=== PATIENT | male | born 1960 | race Caucasian/White ===

== ENCOUNTER 2016-11-12 12:51 | Inpatient (IN) | payer OTHER ==
[~2016-11-12] VITALS: Ht 182.9 cm; Wt 131.5 kg
[~2016-11-12 12:51] MED LIST: PROM6.257 PO; ZITH250T PO; ZOLO100T PO
[2016-11-22] MEDS ORDERED: ZOLO100T PO ×2 (09:43)
[2016-11-22] MEDS ORDERED: TEST1GEL5 TOPICAL ×2 (09:43)
[2016-12-03] MEDS ORDERED: CHLORHEXIDINE GLUCONATE 2 % 1 PACK (2 CLOTHS) TOPICAL PRN (05:45)
[2016-12-03] MEDS ORDERED: ceFAZolin 2 GM PREMIX 50 ML IV SCH (05:45)
[2016-12-03] MEDS ORDERED: LACTATED RINGER'S 1000 ML IV PRN (05:45)
[2016-12-03] MEDS ORDERED: POVIDONE IODINE 5% (ANTISEPSIS KIT) 4 APPLICATIONS EACH NARE PRN (05:45)
[2016-12-03] MEDS ORDERED: CHLORHEXIDINE GLUCONATE 4% SOLN 120 ML BTL TOPICAL SCH (05:45)
[2016-12-03] MEDS ORDERED: METOPROLOL TARTRATE 25 MG TAB PO PRN (05:45)
[2016-12-03] MEDS ORDERED: SODIUM CHLORID 0.9% 500 ML IV PRN (05:45)
[2016-12-03] MEDS ORDERED: INSULIN HUMAN REGULAR 1,000 UNITS/10 ML VIAL SQ PRN (05:45)
[2016-12-03 06:03] VITALS: BP 145/85; PULSE 47; RESP 20; TEMP 98.1; O2SAT 97
[2016-12-03] MEDS ORDERED: GENTAMICIN SULFATE 80 MG/2 ML VIAL ONE (06:10)
[2016-12-03] MEDS ORDERED: FAMOTIDINE 20 MG/2 ML VIAL ONE (07:56)
[2016-12-03] MEDS ORDERED: DEXAMETHASONE SOD PHOS 4 MG/ML VIAL ONE (07:56)
[2016-12-03] MEDS ORDERED: MIDAZOLAM HCL 2 MG/2 ML VIAL ONE ×2 (07:56→12:22)
[2016-12-03] MEDS ORDERED: EXPAREL PERI-ARTICULAR INJECTION (TOTAL VOL. 60 ML) P-ARTICULR SCH ×2 (08:30)
[2016-12-03] MEDS ORDERED: SODIUM CHLORIDE 0.9% IV SCH ×3 (08:30→11:30)
[2016-12-03] MEDS ORDERED: TRANEXAMIC ACID IV SCH ×3 (08:30→11:30)
[2016-12-03] MEDS ORDERED: BUPIVACAINE LIPOSO PF 1.3% INJ 20 ML in SODIUM CHLORIDE 0.9% INJ 80 ML P-ARTICULR SCH (08:30)
[2016-12-03] MEDS ORDERED: ASPI-99 PO (08:37)
--- NOTE | 2016-12-03 08:41 | HHI.FF ---
Face to Face Verification Diagnosis: (1) Status post total left knee replacement Physical Therapy Gait training Knee: Total knee, Protocol: Left, Gait training, Full weight bearing Left LE Weight Bearing: WB as tolerated Left LE Range of Motion: Active ROM (AROM, AAROM, PROM, PRE. ROM goal is 0 to) Nursing Nursing: Dressing changes Dressing Changes: Daily dressing change, Coverderm/Primapore Additional Instructions Remove steristrips on postop day 14. I have seen patient Cholo Avalos Jr Yasmani on 12/03/16. My clinical findings support the need for the requested home health care services because: Ltd mobility - disease progression Limited ability to care for self High risk of falls I certify that my clinical findings support that this patient is homebound because: Post-op weakness Unsteady gait/balance Unsafe to leave home unassisted Lupillo Callahan MD (Charles) Dec 03, 2016 08:41
[2016-12-03] MEDS ORDERED: Post-op Orders (for Pharmacy) MISC XX ONE (08:45)
[2016-12-03] MEDS ORDERED: SODIUM CHLORIDE 0.9% FLUSH 5 ML FLUSH IVF PRN (08:45)
[2016-12-03] MEDS ORDERED: ACETAMINOPHEN/HYDROcodone 325 MG/7.5 MG TAB PO PRN ×2 (08:45)
[2016-12-03] MEDS ORDERED: ONDANSETRON HCL 4 MG/2 ML VIAL IVP PRN (08:45)
[2016-12-03] MEDS ORDERED: ZOLPIDEM TARTRATE 5 MG TAB PO PRN (08:45)
[2016-12-03] MEDS ORDERED: MORPHINE SULFATE 4 MG/ML INJ IV PUSH PRN (08:45)
[2016-12-03] MEDS ORDERED: MAGNESIUM HYDROXIDE SUSP 30 ML CUP PO PRN (08:45)
[2016-12-03] MEDS: SERTRALINE HCL 100 MG TAB PO SCH (09:00)
[2016-12-03] MEDS: SODIUM CHLORIDE 0.9% FLUSH 5 ML FLUSH IVF SCH ×2 (09:00→20:09)
[2016-12-03] MEDS ORDERED: BUPIVACAINE HCL PF 0.5% 30 ML VIAL NERV BLOCK ONE (09:14)
[2016-12-03] MEDS ORDERED: LACTATED RINGER'S 1000 ML INJ 1,000 ML IV ONE (12:00)
[2016-12-03] MEDS ORDERED: PROPOFOL 200 MG/20 ML AMP IV ONE (12:00)
[2016-12-03] MEDS ORDERED: fentaNYL CITRATE 250 MCG/5 ML AMP ONE (12:22)
[2016-12-03] MEDS: LACTATED RINGER'S 1000 ML INJ 1,000 ML IV SCH ×2 (12:45→20:09)
[2016-12-03] MEDS: KETOROLAC TROMETHAMINE 30 MG/ML (IVP) VIAL IVP SCH ×3 (12:50→20:09)
--- NOTE | 2016-12-03 13:11 | RADRPT ---
EXAM DATE/TIME: 12/03/2016 12:36 [place] COMPARISON: No previous studies available for comparison. INDICATIONS : Post-op left knee. MEDICAL HISTORY : None. SURGICAL HISTORY : None. ENCOUNTER: Initial ACUITY: 1 day PAIN SCORE: 0/10 LOCATION: Left Knee. FINDINGS: Total knee arthroplasty is in place. The femoral, tibial, and patellar components appear intact. Th ere are no signs of loosening or fracture. There is an osteochondroma coming off the medial femoral m etaphysis measures 3 cm with a base of 1.8 cm. CONCLUSION: Intact total knee arthroplasty for technique and osteochondroma coming off the dista l femur. William Simpson MD on December 03, 2016 at 13:09 Board Certified Radiologist. This report was verified electronically.
[2016-12-03] MEDS ORDERED: DO NOT ADM ANY ANTICOAGULANT DRUGS PRN (13:15)
--- NOTE | 2016-12-03 13:35 | PD.CONS ---
HPI Service [facility] Hospitalists Consult Requested By Jared Callahan M.D. Reason for Consult Medical Management Primary Care Physician Rashi Pereyra MD Diagnoses: (1) Primary osteoarthritis of left knee (2) Depression (3) Decreased testosterone level History of Present Illness Written by Dustin Freeman, acting as scribe for Dr. Edilia Brady on 12/03/16 at 13 :34. Mr. Gruber is 56 yo, with history of decreased testosterone level and depression. His surgical history includes tonsillectomy, "repair of my foot bones" (left foot), 3-4 meniscal repairs to his left and right knees, as well as right Anterior cruciate ligament repair. Mr. Gruber reported having undergone right ACL repair over 20 years ago. He stated his gait changed and "I'm over weight and that didn't help my knees." He stated he has been walking unassisted yet needs support when he is walking up and down steps, most notably for the past two years. He stated the pain became too great and he underwent surgery to replace his left knee. Mr. Gruber stated he has been working out several times a week for several months "in order to decrease the backside of this surgery." Dr. Callahan contacted the Hospitalist team in order to medically manage Mr. Gruber's medical issues. Review of Systems Musculoskeletal: COMPLAINS OF: Joint pain (Pt reported having left shoulder pain which he suspected was a "torn rotator cuff". he suspected it is from an injury "about 2 years ago.") Except as stated in HPI: all other systems reviewed are Neg (Except as noted above in the HPI.) Past Family Social History Allergies: Coded Allergies: No Known Allergies (Unverified , 12/03/16) Past Medical History Decreased testosterone Depression. Past Surgical History Left foot surgery Tonsillectomy Right anterior cruciate ligament repair Right meniscal repair surgeries (3-4) Left meniscal repair surgeries (3-4) Pt reported having post operative nausea and vomiting x one (after his ACL repair). Reported Medications Reported Meds & Active Scripts Active Reported Testim Topical (Testosterone) 50 Mg/5 Gm Gel 100 Mg TOPICAL DAILY Zoloft (Sertraline HCl) 100 Mg Tab 100 Mg PO DAILY Active Ordered Medications Current Medications Medications (Trade) Dose Ordered Sig/Kaylah Route Start Time Stop Time Status Last Admin Lactated Ringer's 1,000 ml @ 30 mls/hr Q24H PRN IV 7/11/17 05:45 12/06/16 05:44 12/03/16 06:14 (NS 500 ml Inj) 500 ml @ 30 mls/hr [id number] PRN IV 12/03/16 05:45 12/06/16 05:44 Chlorhexidine Gluconate 1 applic 1 applic ONCE TOPICAL 12/03/16 05:45 12/06/16 05:44 Tranexamic Acid 1315 mg/Sodium Chloride 113.15 ml @ 200 mls/ hr ONCE IV 12/03/16 08:30 12/03/16 14:30 12/03/16 09:00 Bupivacaine Liposome 20 ml/ Sodium Chloride 100 ml @ 120 mls/hr ONCE P-ARTICULR 12/03/16 08:30 12/03/16 14:30 12/03/16 09:11 (Lr 1000 ml Inj) 1,000 ml @ 80 mls/hr [id number] IV 12/03/16 08:32 12/03/16 12:45 (NS Flush) 2 ml UNSCH PRN IVF 12/03/16 08:45 IV Flush 2 ml 2 ml BID IVF 12/03/16 09:00 (Ancef Inj/NS Inj) 100 ml @ 200 mls/hr Q6H IV 12/03/16 08:45 12/03/16 21:14 UNV (Post-op Orders (for Pharmacy)) STAT ONCE XX 12/03/16 08:45 12/03/16 08:46 UNV (Morphine Inj) 4 mg Q3H PRN IV PUSH 12/03/16 08:45 ([place] 7.5-325 Mg) 1 tab Q4H PRN PO 12/03/16 08:45 ([place] 7.5-325 Mg) 2 tab Q4H PRN PO 12/03/16 08:45 (Toradol Inj) 15 mg Q6H IVP 12/03/16 10:00 12/05/16 04:01 12/03/16 12:50 (Zofran Inj) 4 mg Q6H PRN IVP 12/03/16 08:45 (Colace) 100 mg BID PO 12/04/16 21:00 (Ambien) 5 mg HS PRN PO 12/03/16 08:45 (Milk Of Magnesia Liq) 30 ml DAILY PRN PO 12/03/16 08:45 (Ecotrin Ec) 81 mg BID PO 12/03/16 09:00 UNV (Zoloft) 100 mg DAILY PO 12/03/16 09:00 Patient Own Medication PT OWN MED:(Testosterone Topical (Melba... DAILY TOPICAL 12/04/16 09:00 Future Hold Family History No significant family medical history reported. Social History Pt denied any nicotine use Alcohol use was reproted as social and "rarely". Use was reported to be "a beer. " Pt denied recreational and illicit drug use. Physical Exam Vital Signs Vital Signs Date Time Temp Pulse Resp B/P Pulse Ox O2 Delivery O2 Flow Rate FiO2 12/03/16 12:30 55 13 113/63 96 Nasal Cannula 3 12/03/16 12:18 97.8 60 12 118/66 95 Nasal Cannula 3 12/03/16 06:03 98.1 47 20 145/85 97 Physical Exam GENERAL: This is a well-nourished, well-developed patient, in no apparent distress. Pt encountered in PACU unit. SKIN: No rashes, ecchymoses or lesions. Cool and dry. HEAD: Atraumatic. Normocephalic. EYES: Pupils equal round and reactive. Extraocular motions intact. No scleral icterus. No injection or drainage. ENT: Nose without bleeding, purulent drainage. Airway patent. NECK: Trachea midline. No lymphadenopathy. Supple and nontender. CARDIOVASCULAR: Bradycardic rate with normal rhythm; without murmurs, gallops, or rubs. RESPIRATORY: Clear to auscultation. Breath sounds equal bilaterally. No wheezes , rales, or rhonchi. GASTROINTESTINAL: Abdomen soft, non-tender, nondistended. No hepato-splenomegaly , or guarding. MUSCULOSKELETAL: Extremities without clubbing, cyanosis, or edema. No joint tenderness, effusion, or edema noted. Left leg noted to be wrapped, straight, with wound vac present. Left knee/lower extremity not manipulated. NEUROLOGICAL: Awake and alert. Cranial nerves II through XII intact. Motor and sensory grossly within normal limits. Five out of 5 muscle strength in all muscle groups, except left lower extremity. Pt could move toes of the left foot , on command and pt demonstrated appropriate sense of touch to the surfaces and toes of the left foot. Speech was clear and fluent. Laboratory Laboratory Tests Test 12/03/16 05:50 Blood Type A POSITIVE Antibody Screen NEGATIVE Blood Bank Comment Imaging Last Impressions Knee X-Ray 12/03/16 0832 Signed Impressions: Service Date/Time: Saturday, December 03, 2016 12:36 - CONCLUSION: Intact total knee arthroplasty for technique and osteochondroma coming off the distal femur. William Simpson MD Assessment and Plan Problem List: (1) Primary osteoarthritis of left knee ICD Code: M17.12 Status: Acute (2) Decreased testosterone level ICD Code: E29.1 Status: Acute (3) Depression ICD Code: F32.9 Status: Acute (4) Sleep apnea with use of continuous positive airway pressure (CPAP) ICD Code: G47.30 Status: Chronic Assessment and Plan Mr. Gruber is 56 yo, with history of decreased testosterone level and depression. His surgical history includes tonsillectomy, "repair of my foot bones" (left foot), 3-4 meniscal repairs to his left and right knees, as well as right anterior cruciate ligament repair. Primary osteoarthritis of left knee -Rehabilitation per Orthopedics. -Pain management per orthopedics Sleep apnea with use of CPAP -RT to be consulted as pt has brought his home unit to hospital Depression -Continue home regimen of Zoloft 100 mg daily Obesity strongly recommended diet and exercise. DVT prophylaxis -Initiate pharmacological agent once cleared by surgery. -Pt currently with SCD on right lower leg. GI Prophylaxis: -None initiated upon admission. Decreased testosterone level Patient evaluated in the presence of PA Mr. Lex Freeman, patient examined, discussed his History and physical. will follow along with Orthopedic surgery assistant. Appreciated Doctor Jared Callahan Orthopedic Toy Stuffer thank you for this consult. - Code Status Full code Discussed Condition With Pt and RN at bedside in PACU. Problem Qualifiers (1) Depression: Qualified Code: F32.9 - Depression, unspecified depression type Dustin Freeman Jr. Dec 03, 2016 13:35 Sai Cheema MD Dec 03, 2016 13:59
[2016-12-03] MEDS ORDERED: *morphine SULFATE 8 MG/ML PERIprocedure ONLY ONE (14:04)
[2016-12-03] MEDS ORDERED: *ONDANSETRON 4 MG VIAL PERIprocedural Use ONLY ONE (14:09)
[2016-12-03 15:55] VITALS: BP 106/62; PULSE 53; RESP 18; TEMP 97.2; O2SAT 93
[2016-12-03 19:52] VITALS: BP 109/55; PULSE 60; RESP 18; TEMP 96.7; O2SAT 94
--- NOTE | 2016-12-03 23:14 | MP ---
cc: Rin COLLAZO. DATE OF SURGERY 12/03/2016 PREOPERATIVE DIAGNOSIS Osteoarthritis left knee with osteochondroma medial aspect left femur. POSTOPERATIVE DIAGNOSIS Osteoarthritis left knee with osteochondroma medial aspect left femur. OPERATION PERFORMED Left total knee arthroplasty with Ale Triathlon prosthesis (uncemented). SURGEON Emely Collazo MD [employer]BER Aury Rivera. ANESTHESIA Spinal with supplemental adductor canal block and local INDICATIONS AND FINDINGS This [id number] man has had longstanding arthritis in his left knee with progressive worsening over the years. He has had pain especially over the past six years. His activities have been significantly limited. He is able to ambulate only short distances because of the pain. He has difficulty with stairs and has pain on twisting motions. He has not responded to conservative measures including anti-inflammatory agents, analgesics, intra-articular corticosteroids and the like. Additionally, he has a known osteochondroma in the medial femoral condyle that does not really cause him a great deal of difficulty but occasionally will be uncomfortable. Physical findings showed significant laxity of the medial compartment with crepitation on motion, tenderness on motion and effusion. There is medial tenderness to palpation. A palpable osteochondromas is noted posteromedially on the femur. X-rays show loss of articular cartilage to [id number] in the medial compartment with osteophytes that were tricompartmental. The x-rays also show an osteochondroma on the medial femoral condyle at the metaphysis. Operative findings showed severe osteoarthritis in the medial compartment and also patellofemoral and lateral compartments with loss of articular cartilage to the exposed subchondral bone of the patellofemoral and medial compartment and close to that on the lateral. The osteochondroma was posterior. It had a smooth edge. It was not easily accessible through the anterior incision. The prosthesis used was a [place] Triathlon prosthesis with the femur being a size six cruciate-retaining porous coated, the tibia being a tritanium baseplate with a 9 mm spacer both size six with a spacer being cruciate-retaining. The patella was a tritanium backed asymmetric patella size 35 x 11. PROCEDURE IN DETAIL The patient was brought to the operating room and a spinal anesthetic was administered after an adductor canal block. He received prophylactic antibiotics in the form of Ancef and also received tranexamic acid. He was placed in a supine position on the operating table with a small bolster under the left hip. A pneumatic tourniquet was applied to the left thigh. The limb was then prepped with alcohol, Hibiclens and Chloraprep and draped in the usual manner with the knee draped free. An appropriate time-out procedure was carried out. An anterior incision was made from three fingerbreadths above the superomedial pole of the patella down to the tibial tubercle. The incision was deepened through subcutaneous tissues to the retinacular structures which were exposed medially and laterally. The medial retinacular incision was made from the superomedial pole of the patella down to the tibial tubercle and up into the quadriceps tendon splitting it longitudinally in the medial one-third. The patella was reflected. Medial and lateral dissection was carried out. The infrapatellar fat pad was debulked. Dissection was then carried out into the medial area of the suprapatellar pouch. This was carried down to the osteochondroma which was palpated but was not accessible from this area safely. Because of its position, it was felt that this would be best handled as different setting and not related to the total knee arthroplasty. The posterior surface of the patella was excised with the oscillating saw taking care to prevent injury to the extensor mechanism. A patellar protector was applied. Patella slipped in the lateral gutter. Fenestration were made in the distal femur and proximal tibia for intermedullary referencing guides. The distal femoral cutting guide and jig were assembled for a 5 degree 8-mm cut. The distal femoral cut was made with the oscillating saw. Osteophytes were trimmed. The sizing guide was positioned along white sides line in the epicondylar axis. The cutting block was stabilized with pins. The size was between a size seven and size six. A 4:1 block was positioned in place and the anterior and posterior cuts made followed by the posterior and anterior chamfer cuts. A size six block was then positioned in place to see whether this was appropriate. At this time, it was felt that this was a more appropriate size. A size five would notch. The size six cutting block was positioned in place and anterior and posterior cuts were made followed by posterior and anterior chamfer cuts. A bone plug was placed into the distal femur. Osteophytes were trimmed. Attention was directed to the tibia. Medial and lateral meniscectomies were completed. The proximal tibial cutting guide and jig were then assembled and positioned appropriately for rotation followed by using the stylus to identify the depth of cut. When the stylus had been placed and the cutting block was stabilized with pins, the depth of cut was verified with the spacer block. The proximal tibial cut was completed with the oscillating saw. The spacer block was inserted, but this seemed relatively tight. Trial prosthesis were inserted and this was tight. For this reason, the tibial cutting guide was then positioned again and a secondary cut was then made to remove an additional 2 mm from the tibia. After this was done, the size six baseplate trial was positioned in place with a 9 mm spacer. The size six femoral trial was impacted into place and seated appropriately. The patella drill guide was positioned in place and drill holes made. The tibial baseplate was stabilized with pins. The knee was taken through a range of motion which was easily 0 degrees extension to 140 degrees of flexion with excellent stability. The osteochondroma was again palpated and appeared to be stable. It was decided not to do any resection of this at this time. The patella trial was removed. The femoral drill holes were made. The femoral trial was removed. The tibial spacer was removed. A bone plug was placed into the proximal tibia. The tibial punch was impacted through its guide and then removed. The tibial drill guide was positioned and drill holes made. The proximal tibial cut was then cleaned with pulse lavage. The tibial baseplate was impacted into place and seated appropriately. This was size six. The spacer was inserted and impacted into place. The femoral component which was also a size six was impacted into place and seated appropriately. The patella was seated with the patella vice. All cut ends were cleaned with pulse lavage prior to doing this. Local anesthesia was administered after the cuts were made about the posterior aspect of the femur and after the prosthesis was in in the anterior aspect. The knee was irrigated well with pulse lavage. Drains were brought out the superolateral aspect of the suprapatellar pouch. Wound closure then commenced using 0 Vicryl interrupted [id number] sutures for retinacular capsule and fascial structures, 2-0 Vicryl interrupted simple sutures with buried knots for the subcutaneous tissues and 4-0 Monocryl continuous subcuticular closure for the skin. The wound was dressed with Steri-Strips followed by dry dressing, sterile Sof-Rol, cooling pad, further sterile Sof-Rol and Brad bandage from the base of the toe to mid thigh. The patient was transferred from the operating room to the recovery room in satisfactory condition having tolerated procedure well. Counts were correct. Specimens none. Estimated blood loss 300 mL. MD PARESH Ch/ /11:55 AM /10:47 PM
[2016-12-04 00:44] VITALS: BP 116/57; PULSE 61; RESP 18; TEMP 97.3; O2SAT 93
[2016-12-04] MEDS: KETOROLAC TROMETHAMINE 30 MG/ML (IVP) VIAL IVP SCH ×2 (03:57→09:11)
[2016-12-04 04:26] VITALS: BP 101/55; PULSE 60; RESP 18; TEMP 96.7; O2SAT 93
--- NOTE | 2016-12-04 06:36 | PD.ORT.PN ---
Subjective Post Op Day #: 1 Subjective Remarks He is doing well. He walked to the North end of the robert and back with no problems. Pain is well controlled. Range of Motion -13 to 103 degrees. Distance Walked 15 feet with PT. Objective Vitals Vital Signs Date Time Temp Pulse Resp B/P Pulse Ox O2 Delivery O2 Flow Rate FiO2 12/04/16 04:26 96.7 60 18 101/55 93 12/04/16 00:44 97.3 61 18 116/57 93 12/03/16 19:52 96.7 60 18 109/55 94 12/03/16 19:02 Room Air 12/03/16 15:55 97.2 53 18 106/62 93 12/03/16 15:40 97.6 57 16 106/55 96 Room Air 12/03/16 15:00 58 16 104/58 95 Room Air 12/03/16 14:30 56 16 103/61 94 Room Air 12/03/16 14:09 15 12/03/16 14:00 97.5 54 16 105/64 99 Nasal Cannula 2 12/03/16 13:50 15 12/03/16 13:45 53 15 106/63 98 Nasal Cannula 2 12/03/16 13:30 51 15 109/65 97 Nasal Cannula 2 12/03/16 13:15 52 15 112/65 96 Nasal Cannula 2 12/03/16 13:00 56 14 111/64 98 Nasal Cannula 3 12/03/16 12:45 54 14 110/62 97 Nasal Cannula 3 12/03/16 12:30 55 13 113/63 96 Nasal Cannula 3 12/03/16 12:18 97.8 60 12 118/66 95 Nasal Cannula 3 I/O 12/03/16 12/03/16 12/03/16 12/04/16 12/04/16 12/04/16 07:00 15:00 23:00 07:00 15:00 23:00 Intake Total 1600 ml 1426 ml 142 ml Output Total 300 ml 800 ml 20 ml Balance 1300 ml 626 ml 122 ml Intake Oral 1080 ml IV Total 346 ml 142 ml Other 1600 ml Output Urine Total 700 ml Drainage Total 100 ml 20 ml Estimated Blood Loss 300 ml # Voids 2 # Bowel Movements 0 Imaging Last 24 hours Impressions Knee X-Ray 12/03/16 0832 Signed Impressions: Service Date/Time: Saturday, December 03, 2016 12:36 - CONCLUSION: Intact total knee arthroplasty for technique and osteochondroma coming off the distal femur. William Simpson MD Objective Remarks She is resting comfortably supine in bed in the CPM. The dressing is dry and intact. The neurovascular status is intact. Assessment & Plan Ortho Post Op Day #: 1 Problem List: (1) Status post total left knee replacement Plan: Continue postop care and PT. Assessment and Plan Condition: Good. Orthopaedically stable. DVT prophylaxis: TEDs, sequentials, ASA. Discharge plans: Home with [facility]. Rx: [place] 7.5/325 Lupillo Callahan MD (Charles) Dec 04, 2016 06:36
[2016-12-04] MEDS ORDERED: HYDR-3580 PO (06:48)
[2016-12-04 08:00] VITALS: BP 108/62; PULSE 53; RESP 18; TEMP 96.7; O2SAT 95
[2016-12-04 08:26] LABS: REVIEW FLAG FINAL
[2016-12-04] MEDS ORDERED: TESTOSTERONE 100 MG TOPICAL SCH (09:00)
[2016-12-04] MEDS: SODIUM CHLORIDE 0.9% FLUSH 5 ML FLUSH IVF SCH (09:00)
[2016-12-04] MEDS: LACTATED RINGER'S 1000 ML INJ 1,000 ML IV SCH (09:11)
[2016-12-04] MEDS: SERTRALINE HCL 100 MG TAB PO SCH (09:11)
[2016-12-04 10:00] VITALS: O2SAT 98
[2016-12-04] MEDS ORDERED: ASPIRIN EC 81 MG TABEC PO SCH (11:00)
[2016-12-04 12:00] VITALS: BP 119/66; PULSE 55; RESP 18; TEMP 97.9; O2SAT 97
--- NOTE | 2016-12-04 14:13 | HHI.PR ---
Subjective Remarks Patient is ablating long distances now. He is medically stable for discharge. Pain control. Objective Vital Signs Date Time Temp Pulse Resp B/P Pulse Ox O2 Delivery O2 Flow Rate FiO2 12/04/16 10:00 98 21 12/04/16 08:00 96.7 53 18 108/62 95 12/04/16 04:26 96.7 60 18 101/55 93 12/04/16 00:44 97.3 61 18 116/57 93 12/03/16 19:52 96.7 60 18 109/55 94 12/03/16 19:02 Room Air 12/03/16 15:55 97.2 53 18 106/62 93 12/03/16 15:40 97.6 57 16 106/55 96 Room Air 12/03/16 15:00 58 16 104/58 95 Room Air 12/03/16 14:30 56 16 103/61 94 Room Air I/O 12/03/16 12/03/16 12/03/16 12/04/16 12/04/16 12/04/16 07:00 15:00 23:00 07:00 15:00 23:00 Intake Total 1600 ml 1426 ml 502 ml Output Total 300 ml 800 ml 520 ml Balance 1300 ml 626 ml -18 ml Intake Oral 1080 ml 360 ml IV Total 346 ml 142 ml Other 1600 ml Output Urine Total 700 ml 500 ml Drainage Total 100 ml 20 ml Estimated Blood Loss 300 ml # Voids 2 # Bowel Movements 0 0 Result Diagram: 12/04/16 0716 Objective Remarks GENERAL: NAD, A&Ox3 HEAD: Normocephalic. NECK: Supple, trachea midline. No lymphadenopathy. EYES: No scleral icterus. No injection or drainage. CARDIOVASCULAR: Regular rate and rhythm without murmurs, gallops, or rubs. RESPIRATORY: Breath sounds equal bilaterally. No accessory muscle use. GASTROINTESTINAL: Abdomen soft, non-tender, nondistended. MUSCULOSKELETAL: No cyanosis, or edema. Left leg bandaged SKIN: Warm and dry. NEURO: No focal neurological deficitis. A/P Problem List: (1) Primary osteoarthritis of left knee ICD Code: M17.12 (2) Sleep apnea with use of continuous positive airway pressure (CPAP) ICD Code: G47.30 (3) Decreased testosterone level ICD Code: E29.1 (4) Depression ICD Code: F32.9 (5) Status post total left knee replacement ICD Code: Z96.652 Assessment and Plan Assessment and Plan 56-year-old male admitted for left knee TKA Status post left knee replacement surgery Orthopedics following Continue pain treatments PT as needed on an outpatient basis Medically cleared for discharge today Sleep apnea CPAP Depression Continue Zoloft Discharge planning Medically stable for discharge today Problem Qualifiers (1) Depression: Qualified Code: F32.9 - Depression, unspecified depression type Parth Tai MD Dec 04, 2016 14:13
[2016-12-04] MEDS ORDERED: DOCUSATE SODIUM 100 MG CAP PO SCH (21:00)
== END 2016-12-04 15:32 | disposition home health service (06) | DRG 470 ==
LOC: HSDI 12-03 05:27 → N06B 12-03 15:53
PROVIDERS: ADMIT Orthopaedic Surgery; ATTEND Orthopaedic Surgery
PROC: 3E0T3BZ Introduction of Anesthetic Agent into Peripheral Nerves and Plexi, Percutaneous Approach (ICD-10-PCS; 2016-12-03)
PROC: 0SRD0JA Replacement of Left Knee Joint with Synthetic Substitute, Uncemented, Open Approach (ICD-10-PCS; principal; 2016-12-03 08:22)
DX: M17.12 Unilateral primary osteoarthritis, left knee (principal); D16.9 Benign neoplasm of bone and articular cartilage, unspecified; F32.9 Major depressive disorder, single episode, unspecified; G47.30 Sleep apnea, unspecified; E66.3 Overweight; Z68.39 Body mass index [BMI] 39.0-39.9, adult; E29.1 Testicular hypofunction
CPT/HCPCS: 73560; 85014; 85018; 86850; 86900; 86901; 94150; C1776; C9290; J0690; J1100; J1580; J1885; J2250; J2270; J2405; J3010; J7120

== ENCOUNTER → 2016-11-22 | Outpatient (CLI) | payer OTHER ==
[~2016-11-22] MED LIST changes: +ASPI-99 PO; +HYDR-3580 PO; +TEST1GEL5 TOPICAL
--- NOTE | 2016-11-22 14:32 | EKG ---
Date Performed: 11/22/2016 Time Performed: 09:31:48 PTAGE: 56 years EKG: SINUS BRADYCARDIA INFERIOR MYOCARDIAL INFARCTION, OF INDETERMINATE AGE ABNORMAL ECG NO SIGN IFICANT CHANGE FROM PRIOR ELECTROCARDIOGRAM. PREVIOUS TRACING : 07/01/2011 08.50 DOCTOR: Jacinto Banks Interpretating Date/Time 11/22/2016 14:31:14
== END ==
LOC: CPRE 09:16
PROVIDERS: ATTEND Orthopaedic Surgery
DX: Z01.810 Encounter for preprocedural cardiovascular examination (principal); M17.12 Unilateral primary osteoarthritis, left knee; M79.609 Pain in unspecified limb; R94.31 Abnormal electrocardiogram [ECG] [EKG]
CPT/HCPCS: 93005